=== PATIENT | male | born 1990 ===

== ENCOUNTER 2022-11-27 14:18 | Emergency (ER) | payer OTHER ==
[2022-11-27 15:13] LABS: BASOPHILS PERCENT AUTO 0.2 % (0.0-1.5); EOSINOPHILS ABSOLUTE AUTO 0.2 K/uL (0.0-0.7); EOSINOPHILS PERCENT AUTO 2.8 % (0.0-7.0); HEMATOCRIT 44.1 % (38.0-50.0); HEMOGLOBIN 15.1 g/dL (13.0-17.0); LYMPHOCYTES ABSOLUTE AUTO 1.8 K/uL (0.6-2.4); LYMPHOCYTES PERCENT AUTO 31.6 % (16.0-40.0); MEAN CORPUSCULAR HEMOGLOBIN 28.9 pg (27.0-32.0); MEAN CORPUSCULAR HGB CONC 34.2 g/dL (31.0-37.0); MEAN CORPUSCULAR VOLUME 84.5 fL (80.0-98.0); MONOCYTES ABSOLUTE AUTO 0.4 K/uL (0.0-0.8); MONOCYTES PERCENT AUTO 7.1 % (0.0-15.0); NEUTROPHILS ABSOLUTE AUTO 3.4 K/uL (1.4-5.7); NEUTROPHILS PERCENT AUTO 58.3 % (48.0-80.0); NRBC ABSOLUTE 0 K/uL; PLATELET COUNT,PLT 232 K/uL (150-400); RED BLOOD CELL COUNT 5.22 M/uL (4.50-5.90); WHITE BLOOD CELL COUNT,WBC 5.79 K/uL (4.0-11.0)
[2022-11-27 15:33] LABS: A/G RATIO 1.2 (0.9-1.6); BILIRUBIN TOTAL 0.4 mg/dL (0.2-1.0); CALCIUM 8.7 mg/dL (8.5-10.1); CARBON DIOXIDE,CO2 28.3 mmol/L (21.0-32.0); CREATININE 1.3 mg/dL (0.8-1.3); EST CRCL DRUG DOSING (CG) 85.01 mL/min; POTASSIUM,K 4.1 mmol/L (3.5-5.1); PROTEIN TOTAL,TP 7.4 g/dL (6.4-8.2)
== END 2022-11-27 16:37 | disposition home or self-care (01) ==
LOC: MW.ED 14:18
DX: M94.0 Chondrocostal junction syndrome [Tietze] (principal); Z88.0 Allergy status to penicillin; Z88.8 Allergy status to other drugs, medicaments and biological substances
CPT/HCPCS: 36415; 71046; 71046-26; 80053; 84484; 85025; 93005; 93010; 99283; 99285